=== PATIENT | male | born 1970 | race Caucasian/White ===

== ENCOUNTER 2020-07-04 11:11 | Emergency (ER) | payer OTHER ==
[2020-07-04 11:45] LABS: Absolute Lymphocytes (CBC) 0.9 K/uL (0.7-4.9); Basophils % 0.1 % (0-1.3); Hematocrit 45.7 % (39.6-49.0); Lymphocytes % 3.5 % (15.3-44.8); MPV 7.8 fL (7.6-11.3); RBC Red Blood Cell Count 5.22 M/uL (4.33-5.43)
[2020-07-04] MEDS ORDERED: D5 0.9 NS 1,000 ML IV ONE (11:46)
[2020-07-04 11:59] LABS: Protime INR 1.29
[2020-07-04 12:19] LABS: Blood Morphology Comment NOT SEEN (NOT SEEN); Platelet Estimate ADEQ
[2020-07-04 12:20] LABS: ALT/SGPT 73 U/L (12-78); AST/SGOT 207 U/L (15-37); Albumin 4.7 g/dL (3.4-5.0); Alkaline Phosphatase 159 U/L (45-117); BUN Blood Urea Nitrogen 39 mg/dL (7-18); Bicarbonate 20 mmol/L (21-32); Bilirubin Direct 0.3 mg/dL (0-0.2); Bilirubin Total 0.8 mg/dL (0.2-1.0); Glucose Level 50 mg/dL (74-106); Potassium 4.3 mmol/L (3.5-5.1); Protein, Total 8.4 g/dL (6.4-8.2); Sodium Level 144 mmol/L (136-145)
[2020-07-04 13:55] LABS: Urine Bacteria <20 /HPF (NONE SEEN); Urine RBC <5 /HPF (NONE SEEN)
--- NOTE | 2020-07-04 13:58 | RAD REPORT ---
EXAM DESCRIPTION: Sukhdev Single View07/04/2020 1:48 pm CLINICAL HISTORY: Leukocytosis COMPARISON: none FINDINGS: The lungs appear clear of acute infiltrate. The heart is normal size IMPRESSION: No acute abnormalities displayed
[2020-07-04 14:07] LABS: Barbiturates NEGATIVE (NEGATIVE); Benzodiazepines NEGATIVE (NEGATIVE); Cocaine NEGATIVE (NEGATIVE); METHAMPHETAM POSITIVE (NEGATIVE); Methadone NEGATIVE (NEGATIVE); Opiates NEGATIVE (NEGATIVE); Phencyclidine NEGATIVE (NEGATIVE); THC Cannibis POSITIVE (NEGATIVE)
[2020-07-04 14:14] LABS: Urine Blood 3+ (NEG); Urine Glucose NEGATIVE (NEG); Urine Protein 1+ (NEG); Urine Specific Gravity >1.030 (1.005-1.030); Urine pH 5.5 (5.0-7.0)
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
--- NOTE | 2020-07-05 06:21 | EKG ---
Test Date: 2020-07-04 Test Time: 10:24:33 Advertising Strategist: MICHAEL MEASUREMENT RESULTS: Intervals: Rate: 49 WI: 140 QRSD: 92 QT: 526 QTc: 475 [place]: P: 51 WI: 140 QRS: 33 T: 36 INTERPRETIVE STATEMENTS: Marked sinus bradycardia Possible Left atrial enlargement Abnormal ECG Compared to ECG 01/26/2013 14:58:04 Sinus rhythm no longer present Sinus arrhythmia no longer present Electronically Signed On 07-05-20 06:19:44 CDT by Fletcher Buck
== END 2020-07-04 17:29 | disposition home or self-care (01) ==
LOC: ER 11:11
DX: R41.82 Altered mental status, unspecified (principal); T68.XXXA Hypothermia, initial encounter; X31.XXXA Exposure to excessive natural cold, initial encounter; Z71.51 Drug abuse counseling and surveillance of drug abuser; S80.812A Abrasion, left lower leg, initial encounter; S80.811A Abrasion, right lower leg, initial encounter; X58.XXXA Exposure to other specified factors, initial encounter; Y93.9 Activity, unspecified; Y92.832 Beach as the place of occurrence of the external cause; F17.210 Nicotine dependence, cigarettes, uncomplicated
CPT/HCPCS: 93005; 85025; 80048; 36415; 80320; 80329 ×2; 85610; 82947 ×3; 80076; 80307 ×8; 85730; 71045; J7042; 81003; 81015; 96374; 99291; 99292